=== PATIENT | male | born 1990 | race Caucasian/White ===

== ENCOUNTER 2018-06-07 03:29 | Emergency (ER) | payer SELFPAY ==
[~2018-06-07] VITALS: Ht 172.7 cm; Wt 108.9 kg
[2018-06-07] MEDS ORDERED: KETOROLAC TROMETHAMINE 30 MG/ML VIAL IV STA (03:46)
[2018-06-07] MEDS ORDERED: ONDANSETRON HCL INJ 2 MG/ML VIAL IV STA (03:46)
[2018-06-07] MEDS ORDERED: HYDROMORPHONE 1MG/1ML INJ IV STA ×2 (03:46→04:54)
[2018-06-07] MEDS ORDERED: SODIUM CHLORIDE 0.9% 1000ML 1,000 ML IV STA ×2 (03:46→05:19)
[2018-06-07 04:21] LABS: BASOPHILS # (AUTO) 0.1 (0.0-0.1); BASOPHILS % 0.5 % (0.0-1.0); EOSINOPHILS # (AUTO) 0.1 (0.0-0.4); EOSINOPHILS % 0.8 % (0.0-6.0); HEMATOCRIT 43.8 % (38.2-49.6); HEMOGLOBIN 15.7 g/dL (14.0-18.0); LYMPHOCYTES # (AUTO) 5.1 (1.0-3.2); LYMPHOCYTES % 43.1 % (18.0-39.1); MEAN CORPUSCULAR HEMOGLOBIN 31.1 pg (28-32); MEAN CORPUSCULAR HGB CONC 35.8 g/dL (31-35); MEAN CORPUSCULAR VOLUME 86.7 fL (81-99); MONOCYTES # (AUTO) 0.9 (0.2-0.8); MONOCYTES % 7.5 % (4.4-11.3); NEUTROPHILS # (AUTO) 5.6 (2.1-6.9); NEUTROPHILS % 47.8 % (38.7-80.0); PLATELET COUNT 276 x10e3/uL (140-360); RED BLOOD COUNT 5.05 x10e6/uL (4.3-5.7); RED CELL DISTRIBUTION WIDTH 12.9 % (11.7-14.4)
[2018-06-07 04:25] LABS: INR 0.99; PROTHROMBIN TIME 12.3 seconds (11.9-14.5)
[2018-06-07 04:26] LABS: PARTIAL THROMBOPLASTIN TIME 30.3 seconds (23.8-35.5)
[2018-06-07 04:34] LABS: ALANINE AMINOTRANSFERASE 50 IU/L (0-55); ALBUMIN 4.4 g/dL (3.5-5.0); ALBUMIN/GLOBULIN RATIO 1.3 (0.8-2.0); ALKALINE PHOSPHATASE 49 IU/L (40-150); ANION GAP 19.6 mmol/L (8-16); BLOOD UREA NITROGEN 17 mg/dL (7-26); BUN/CREATININE RATIO 12 (6-25); CALCIUM 9.7 mg/dL (8.4-10.2); CARBON DIOXIDE 18 mmol/L (22-29); CHLORIDE 110 mmol/L (98-107); CREATINE KINASE 387 IU/L (30-200); EST GLOMERULAR FILTRATION RATE 60 ML/MIN (60-); GLUCOSE 139 mg/dL (74-118); MAGNESIUM 2.3 MG/DL (1.3-2.1); POTASSIUM 3.6 mmol/L (3.5-5.1); SODIUM 144 mmol/L (136-145)
--- NOTE | 2018-06-07 04:57 | Diagnostic Imaging Report ---
EXAM: CT ABDOMEN AND PELVIS without IV CONTRAST INDICATION: Left flank pain COMPARISON: None TECHNIQUE: The abdomen and pelvis were scanned using a multidetector helical scanner. Coronal and sagittal reformations were obtained. Renal stone protocol performed. IV Contrast: None Oral Contrast: None CTDIvol has been reviewed. It is below the limits set by the Radiation Protocol Committee (RPC). FINDINGS: LOWER THORAX: No consolidations LIVER: No masses BILIARY: Normal gallbladder. No ductal dilation. SPLEEN: No masses PANCREAS: No masses ADRENALS: No nodules RIGHT KIDNEY: No nephroureterolithiasis or hydronephrosis. LEFT KIDNEY: There is a 2 mm stone at the left ureterovesicular junction resulting in mild hydroureteronephrosis. GI TRACT: No wall thickening or obstruction. Small hiatal hernia. Appendectomy. VESSELS: Unremarkable PERITONEUM/RETROPERITONEUM: No free air or fluid LYMPH NODES: No lymphadenopathy REPRODUCTIVE ORGANS: Normal BLADDER: Decompressed SOFT TISSUES: Normal BONES: No suspicious bone lesions. IMPRESSION: There is a 2 mm stone at the left ureterovesicular junction resulting in mild hydroureteronephrosis. Signed by: Dr. Ramila Frazier M.D. on 06/07/2018 4:54 AM
[2018-06-07 06:16] LABS: BILIRUBIN,URINE NEGATIVE (NEGATIVE); CLARITY,URINE CLEAR (CLEAR); COLOR,URINE YELLOW (YELLOW); KETONES,URINE NEGATIVE (NEGATIVE); LEUKOCYTE ESTERASE ,URINE NEGATIVE (NEGATIVE); NITRITE,URINE NEGATIVE (NEGATIVE); PROTEIN,URINE DIPSTICK TRACE (NEGATIVE); URINE UROBILINOGEN 0.2 mg/dL (0.2 - 1)
[2018-06-07 06:18] LABS: AMORPHOUS SEDIMENT,URINE MODERATE (FEW); BACTERIA,URINE RARE /HPF; EPITHELIAL CELLS,URINE FEW /LPF; RBC,URINE 21-50 /HPF (0-5); WBC,URINE (MAN) 0-5 /HPF (0-5)
[2018-06-07] MEDS ORDERED: HYDROMORPHONE 1MG/1ML INJ IV ONE (07:00)
== END 2018-06-07 07:20 | disposition home or self-care (01) ==
LOC: ER 03:29
DX: R10.9 Unspecified abdominal pain (principal); M54.5 Low back pain; R11.2 Nausea with vomiting, unspecified; N20.1 Calculus of ureter
CPT/HCPCS: 36415; 74176; 80053; 81001; 82550; 82553; 83735; 84484; 85025; 85610; 85730; 87086; 99284; J1170; J1885; J2405; J7030